=== PATIENT | male | born 1995 | race Caucasian/White ===

== ENCOUNTER 2023-08-19 19:14 | Inpatient (IN) | payer MEDICAID, SELFPAY ==
[2023-08-19 19:18] VITALS: BMI 26.6
[2023-08-19 19:27] VITALS: BP 145/92; PULSE 99; RESP 16; TEMP 36.8; O2SAT 96
[2023-08-19 19:52] LABS: Basophils # 0.1 10^3/uL (0.0-0.1); Basophils % 0.4 %; Eosinophils # 0.1 10^3/uL (0.0-0.8); Eosinophils % 0.4 %; Hematocrit 46.5 % (37-53); Lymphocytes # 4.3 10^3/uL (0.8-4.8); Lymphocytes % 30.4 %; Mean Corpuscular HGB Conc 35.1 g/dL (30-55); Mean Corpuscular Hemoglobin 30.9 pg (27-33); Mean Corpuscular Volume 88.1 fl (82-101); Mean Platelet Volume 8.6 fL (7.4-10.4); Monocytes % 6.8 %; Neutrophils # 8.65 10^3/uL (1.8-7.7); Neutrophils % 61.6 %; Nucleated Red Blood Cells % 0 %; Platelet Count 300 10^3/cmm (157-399); Red Blood Count 5.28 10^6/uL (3.85-5.65); Red Cell Distribution Width 12.9 % (12.1-15.1); White Blood Count 14.04 10^3/uL (3.29-11.43)
[2023-08-19 19:58] LABS: Add Urine Microscopic? NO; Charge for UA Resulting for Rev
[2023-08-19 20:19] LABS: Amphetamines Screen Urine Negative (Negative); Barbiturates Screen Urine Negative (Negative); Benzodiazepines Screen Urine Negative (Negative); Cocaine Screen Urine Negative (Negative); Opiate Screen Urine Negative (Negative); PCP Screen Urine Negative (Negative); THC Screen Urine Positive (Negative)
[2023-08-19 20:24] LABS: Alanine Aminotransferase 20 U/L (0-41); Albumin Level 4.4 g/dL (3.5-5.2); Alcohol Level 88 mg/dL (0-10); Alkaline Phosphatase 75 U/L (40-130); Anion Gap 17.7 (5-19); Aspartate Amino Transferase 18 U/L (0-40); Blood Urea Nitrogen 10 mg/dL (6-20); Calcium 8.4 mg/dL (8.5-10.5); Carbon Dioxide 24 mmol/L (22-29); Chloride 104 mmol/L (98-107); Globulin 2.7 g/dL (1.3-4.6); Glomerular Filtration Rate 99.8 mL/min (90-130); Glucose 103 mg/dL (65-115); Osmolality Calculated 293 mOsm/kg (285-295); Potassium 3.7 mmol/L (3.5-5.1); Sodium 142 mmol/L (136-145); Total Bilirubin 0.3 mg/dL (0.15-1.2); Total Protein 7.1 g/dL (6.6-8.7)
--- NOTE | 2023-08-19 20:35 | W.ED.PSYCHS ---
Documented by User: Sam Islas DO 08/19/23 20:40 HPI - Psych General: Chief Complaint: Psychiatric Symptoms Stated Complaint: SI/ETOH Time Seen by Provider: 08/19/23 19:23 History of Present Illness: Patient presents to the ER with worsening depression and insomnia. Patient said his life has been spiraling downhill specially over the last couple months. Patient says he has no will to live and drinks 1-1/2 to 2 pints of 100 proof alcohol daily just to drown his feelings and help him get through the day. Patient denies any overt suicidal or homicidal ideation but says he do not know if he can go through this anymore and just needs help. [facility] ED PFSH: Medical History Psychiatric care Physical Exam Const: COMMON NORMALS: no acute distress, average body habitus, patient oriented x3, no limitations, healthy appearing, alert and well nourished HENMT: COMMON NORMALS: normocephalic, hearing grossly normal bilaterally, external ears normal, Normal external nose present, moist oral mucous membranes and oropharynx normal HEAD & SCALP: normocephalic NOSE: Normal external nose present EXTERNAL EAR: Yes external ears normal Neck/C-Spine: COMMON NORMALS: full ROM, no lymphadenopathy, supple, no meningeal signs, no JVD and Thyroid normal THYROID: Thyroid normal Chest: COMMONS NORMALS: normal inspection of the chest and normal palpation of entire chest wall Resp: COMMON NORMALS: normal respiratory effort, No retractions, No use of accessory muscles and clear to auscultation bilaterally AUSCULTATION: clear to auscultation bilaterally Cardio: COMMON NORMALS: no JVD, regular rate, regular rhythm, S1 normal heart sound present, S2 normal heart sound present, No gallops present (Cardio), No clicks present (Cardio), No murmurs present (Cardio) and No rub (Cardio) RATE: regular rate RHYTHM: regular rhythm HEART SOUNDS: S1 normal heart sound present and S2 normal heart sound present GI: COMMON NORMALS: Normal to inspection, nondistended, normoactive bowel sounds present, Soft to palpation, non-tender, No hepatosplenomegaly present and no masses PALPATION: Yes Soft to palpation and Yes No hepatosplenomegaly present Neuro: COMMON NORMALS: patient oriented x3 SENSORIUM/ORIENTATION: Yes alert MENINGEAL SIGNS: Yes no meningeal signs Course Vital Signs: Vital signs: Vital Signs Temperature 98.1 F 08/20/23 12:51 Pulse Rate 60 08/20/23 12:51 Respiratory Rate 16 08/20/23 06:33 Blood Pressure 129/80 08/20/23 12:51 Pulse Oximetry 98 08/20/23 12:51 Oxygen Delivery Me thod Room Air 08/20/23 12:51 MDM - Psych Differential Diagnosis Likely depression; Unlikely acute psychosis, chronic schizophrenia, suicidal ideation, bipolar disorder, drug-induced psychotic disorder or acute anxiety Medical Records I reviewed the patient's medical records. Lab Data I reviewed the patient's lab results. 08/19/23 19:48 08/19/23 19:48 Laboratory Results WBC 14.04 10^3/uL (3.29-11.43) H 08/19/23 19:48 RBC 5.28 10^6/uL (3.85-5.65) 08/19/23 19:48 Hgb 16.30 g/dL (11.27-16.99) 08/19/23 19:48 Hct 46.5 % (37-53) 08/19/23 19:48 MCV 88.1 fl (82-101) 08/19/23 19:48 MCH 30.9 pg (27-33) 08/19/23 19:48 MCHC 35.1 g/dL (30-55) 08/19/23 19:48 RDW 12.9 % (12.1-15.1) 08/19/23 19:48 Plt Count 300 10^3/cmm (157-399) 08/19/23 19:48 MPV 8.6 fL (7.4-10.4) 08/19/23 19:48 Neut % (Auto) 61.6 % 08/19/23 19:48 Lymph % (Auto) 30.4 % 08/19/23 19:48 Victoria % (Auto) 6.8 % 08/19/23 19:48 Eos % (Auto) 0.4 % 08/19/23 19:48 Baso % (Auto) 0.4 % 08/19/23 19:48 Neut # (Auto) 8.65 10^3/uL (1.8-7.7) H 08/19/23 19:48 Lymph # (Auto) 4.3 10^3/uL (0.8-4.8) 08/19/23 19:48 Victoria # (Auto) 1.0 10^3/uL (0.2-0.9) H 08/19/23 19:48 Eos # (Auto) 0.1 10^3/uL (0.0-0.8) 08/19/23 19:48 Baso # (Auto) 0.1 10^3/uL (0.0-0.1) 08/19/23 19:48 Nucleated RBC % (auto) 0 % 08/19/23 19:48 Nucleated RBCs # 0.0 /100WBC 08/19/23 19:48 Sodium 142 mmol/L (136-145) 08/19/23 19:48 Potassium 3.7 mmol/L (3.5-5.1) 08/19/23 19:48 Chloride 104 mmol/L (98-107) 08/19/23 19:48 Carbon Dioxide 24 mmol/L (22-29) 08/19/23 19:48 Anion Gap 17.7 (5-19) 08/19/23 19:48 BUN 10 mg/dL (6-20) 08/19/23 19:48 Creatinine 0.9 mg/dL (0.7-1.2) 08/19/23 19:48 GFR Calculation 99.8 mL/min (90-130) 08/19/23 19:48 Glucose 103 mg/dL (65-115) 08/19/23 19:48 Calculated Osmolality 293 mOsm/kg (285-295) 08/19/23 19:48 Calcium 8.4 mg/dL (8.5-10.5) L 08/19/23 19:48 Total Bilirubin 0.3 mg/dL (0.15-1.2) 08/19/23 19:48 AST 18 U/L (0-40) 08/19/23 19:48 ALT 20 U/L (0-41) 08/19/23 19:48 Alkaline Phosphatase 75 U/L (40-130) 08/19/23 19:48 Total Protein 7.1 g/dL (6.6-8.7) 08/19/23 19:48 Albumin 4.4 g/dL (3.5-5.2) 08/19/23 19:48 Globulin 2.7 g/dL (1.3-4.6) 08/19/23 19:48 Urine Color Yellow (Yellow) 08/19/23 19:14 Urine Appearance Clear (CLEAR) 08/19/23 19:14 Urine pH 6 (5-7) 08/19/23 19:14 Ur Specific Smilax 1.010 (1.005-1.030) 08/19/23 19:14 Urine Protein Neg (Negative) 08/19/23 19:14 Urine Glucose (UA) Norm (Normal) 08/19/23 19:14 Urine Ketones Negative (Negative) 08/19/23 19:14 Urine Blood Neg (Negative) 08/19/23 19:14 Urine Nitrate Negative (Negative) 08/19/23 19:14 Urine Bilirubin Neg (Negative) 08/19/23 19:14 Urine Urobilinogen Norm mg/dL (Negative) 08/19/23 19:14 Ur Leukocyte Esterase Negative (Negative) 08/19/23 19:14 Salicylates < 0.3 mg/dL (3-10) L 08/19/23 19:48 Urine Opiates Screen Negative ng/mL (Negative) 08/19/23 19:14 Acetaminophen < 5.0 ug/mL (10-30) L 08/19/23 19:48 Ur Barbiturates Screen Negative ng/mL (Negative) 08/19/23 19:14 Ur Phencyclidine Scrn Negative ng/mL (Negative) 08/19/23 19:14 Ur Amphetamines Screen Negative ng/mL (Negative) 08/19/23 19:14 U Benzodiazepines Scrn Negative ng/mL (Negative) 08/19/23 19:14 Urine Cocaine Screen Negative ng/mL (Negative) 08/19/23 19:14 U Marijuana (THC) Screen Positive ng/mL (Negative) H 08/19/23 19:14 Ethyl Alcohol 88 mg/dL (0-10) H 08/19/23 19:48 No radiology studies performed this visit Discharge Plan Discharge Admit Provider: Magnus Martinez Condition: Stable Coding Level of Care Code ED Advertising Specialist for Chg Fwd Documented by User: Raphael Cummings 08/20/23 13:06 HPI - Psych General: Chief Complaint: Psychiatric Symptoms Stated Complaint: SI/ETOH Time Seen by Provider: 08/19/23 19:23 PFSH ED PFSH: Medical History Psychiatric care Course Vital Signs: Vital signs: Vital Signs Temperature 98.1 F 08/20/23 12:51 Pulse Rate 60 08/20/23 12:51 Respiratory Rate 16 08/20/23 06:33 Blood Pressure 129/80 08/20/23 12:51 Pulse Oximetry 98 08/20/23 12:51 Oxygen Delivery Me thod Room Air 08/20/23 12:51 MDM - Psych Medical Decision Making h Medical Records This patient was signed out to myself Dr. Cummings by Dr. Islas at 0600 currently waiting on open bed to admit this patient as Dr. Martinez was already consulted and has agreed to accept the patient, will continue to follow. Notified by nursing staff at around noon we do have bed availability contacted Dr. Martinez back no additional concerns or were noted patient was provided a nicotine patch patient will be be admitted to the [facility] for further assessment and management Lab Data 08/19/23 19:48 08/19/23 19:48 Laboratory Results WBC 14.04 10^3/uL (3.29-11.43) H 08/19/23 19:48 RBC 5.28 10^6/uL (3.85-5.65) 08/19/23 19:48 Hgb 16.30 g/dL (11.27-16.99) 08/19/23 19:48 Hct 46.5 % (37-53) 08/19/23 19:48 MCV 88.1 fl (82-101) 08/19/23 19:48 MCH 30.9 pg (27-33) 08/19/23 19:48 MCHC 35.1 g/dL (30-55) 08/19/23 19:48 RDW 12.9 % (12.1-15.1) 08/19/23 19:48 Plt Count 300 10^3/cmm (157-399) 08/19/23 19:48 MPV 8.6 fL (7.4-10.4) 08/19/23 19:48 Neut % (Auto) 61.6 % 08/19/23 19:48 Lymph % (Auto) 30.4 % 08/19/23 19:48 Victoria % (Auto) 6.8 % 08/19/23 19:48 Eos % (Auto) 0.4 % 08/19/23 19:48 Baso % (Auto) 0.4 % 08/19/23 19:48 Neut # (Auto) 8.65 10^3/uL (1.8-7.7) H 08/19/23 19:48 Lymph # (Auto) 4.3 10^3/uL (0.8-4.8) 08/19/23 19:48 Victoria # (Auto) 1.0 10^3/uL (0.2-0.9) H 08/19/23 19:48 Eos # (Auto) 0.1 10^3/uL (0.0-0.8) 08/19/23 19:48 Baso # (Auto) 0.1 10^3/uL (0.0-0.1) 08/19/23 19:48 Nucleated RBC % (auto) 0 % 08/19/23 19:48 Nucleated RBCs # 0.0 /100WBC 08/19/23 19:48 Sodium 142 mmol/L (136-145) 08/19/23 19:48 Potassium 3.7 mmol/L (3.5-5.1) 08/19/23 19:48 Chloride 104 mmol/L (98-107) 08/19/23 19:48 Carbon Dioxide 24 mmol/L (22-29) 08/19/23 19:48 Anion Gap 17.7 (5-19) 08/19/23 19:48 BUN 10 mg/dL (6-20) 08/19/23 19:48 Creatinine 0.9 mg/dL (0.7-1.2) 08/19/23 19:48 GFR Calculation 99.8 mL/min (90-130) 08/19/23 19:48 Glucose 103 mg/dL (65-115) 08/19/23 19:48 Calculated Osmolality 293 mOsm/kg (285-295) 08/19/23 19:48 Calcium 8.4 mg/dL (8.5-10.5) L 08/19/23 19:48 Total Bilirubin 0.3 mg/dL (0.15-1.2) 08/19/23 19:48 AST 18 U/L (0-40) 08/19/23 19:48 ALT 20 U/L (0-41) 08/19/23 19:48 Alkaline Phosphatase 75 U/L (40-130) 08/19/23 19:48 Total Protein 7.1 g/dL (6.6-8.7) 08/19/23 19:48 Albumin 4.4 g/dL (3.5-5.2) 08/19/23 19:48 Globulin 2.7 g/dL (1.3-4.6) 08/19/23 19:48 Urine Color Yellow (Yellow) 08/19/23 19:14 Urine Appearance Clear (CLEAR) 08/19/23 19:14 Urine pH 6 (5-7) 08/19/23 19:14 Ur Specific Smilax 1.010 (1.005-1.030) 08/19/23 19:14 Urine Protein Neg (Negative) 08/19/23 19:14 Urine Glucose (UA) Norm (Normal) 08/19/23 19:14 Urine Ketones Negative (Negative) 08/19/23 19:14 Urine Blood Neg (Negative) 08/19/23 19:14 Urine Nitrate Negative (Negative) 08/19/23 19:14 Urine Bilirubin Neg (Negative) 08/19/23 19:14 Urine Urobilinogen Norm mg/dL (Negative) 08/19/23 19:14 Ur Leukocyte Esterase Negative (Negative) 08/19/23 19:14 Salicylates < 0.3 mg/dL (3-10) L 08/19/23 19:48 Urine Opiates Screen Negative ng/mL (Negative) 08/19/23 19:14 Acetaminophen < 5.0 ug/mL (10-30) L 08/19/23 19:48 Ur Barbiturates Screen Negative ng/mL (Negative) 08/19/23 19:14 Ur Phencyclidine Scrn Negative ng/mL (Negative) 08/19/23 19:14 Ur Amphetamines Screen Negative ng/mL (Negative) 08/19/23 19:14 U Benzodiazepines Scrn Negative ng/mL (Negative) 08/19/23 19:14 Urine Cocaine Screen Negative ng/mL (Negative) 08/19/23 19:14 U Marijuana (THC) Screen Positive ng/mL (Negative) H 08/19/23 19:14 Ethyl Alcohol 88 mg/dL (0-10) H 08/19/23 19:48 Discharge Plan Discharge Admit Provider: Magnus Martinez Condition: Stable Coding Level of Care Code ED Advertising Specialist for Jerardo Blackman
[2023-08-19 20:36] LABS: Acetaminophen < 5.0 ug/mL (10-30); Salicylate < 0.3 mg/dL (3-10)
[2023-08-19 20:44] LABS: Bilirubin Urine Neg (Negative); Blood Urine Neg (Negative); Glucose Urine UA Norm (Normal); Ketones Urine Negative (Negative); Leukocyte Esterase Urine Negative (Negative); Nitrate Urine Negative (Negative); Protein Urine Neg (Negative); Urine Appearance Clear (CLEAR); Urine Color Yellow (Yellow); Urobilinogen Urine Norm (Negative); pH Urine 6 (5-7)
[2023-08-20 06:33] VITALS: BP 106/71; PULSE 69; RESP 16; O2SAT 99
[2023-08-20] MEDS: nicotine 21 mg Patch 1 PATCH TRANSDERMA (07:19)
[2023-08-20 12:51] VITALS: BP 129/80; PULSE 60; TEMP 36.7; O2SAT 98
[2023-08-20 14:00] VITALS: BP 151/95; PULSE 72; RESP 16; TEMP 36.8; O2SAT 96
[2023-08-20] MEDS: nicotine 2 mg Gum BUCCAL ×2 (15:18→18:21)
[2023-08-20 20:08] VITALS: BP 158/97; PULSE 60; RESP 18; TEMP 36.5; O2SAT 99
[2023-08-21 06:00] VITALS: BP 121/70; PULSE 52; RESP 16; TEMP 36.4; O2SAT 99; BMI 27.8
[2023-08-21] MEDS: multivitamin therapeutic Tablet 1 TAB PO (07:59)
[2023-08-21] MEDS: thiamine 100 mg Tablet PO (07:59)
[2023-08-21] MEDS: nicotine 2 mg Gum BUCCAL (08:00)
[2023-08-21] MEDS: folic acid 1 mg Tablet PO (08:00)
--- NOTE | 2023-08-21 08:06 | PC.NURSE ---
During morning shift assessment, patient denied all. Patient calm and cooperative denies any needs at this time.
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
[2023-08-21 14:00] VITALS: BP 141/88; PULSE 63; RESP 16; TEMP 36.6; O2SAT 96
[2023-08-21] MEDS: fluoxetine 20 mg Capsule PO (14:54)
[2023-08-21 19:45] VITALS: BP 134/79; PULSE 52; RESP 18; TEMP 36.3; O2SAT 98
[2023-08-22 06:00] VITALS: BP 136/78; PULSE 50; RESP 16; TEMP 36.6; O2SAT 99
--- NOTE | 2023-08-22 08:12 | PC.NURSE ---
During morning shift assessment, patient reports anxiety related to going to his first group today. Patient denies SI, HI, AVH, and depression.
[2023-08-22] MEDS: folic acid 1 mg Tablet PO (08:28)
[2023-08-22] MEDS: multivitamin therapeutic Tablet 1 TAB PO (08:28)
[2023-08-22] MEDS: thiamine 100 mg Tablet PO (08:28)
[2023-08-22] MEDS: fluoxetine 20 mg Capsule PO (08:28)
--- NOTE | 2023-08-22 09:15 | P.NPUPN_ITS ---
Subjective NPU 2 Subjective: Patient presented today reporting that he is feeling better with the addition of Prozac. He reports that he is feeling well from the standpoint of his alcohol withdrawal. He reports that the social work team was helpful and reached out to his employer and so that issues should be a nonissue. He reported wondering about the possibility of discharge and is wondering if that could happen by tomorrow. We discussed evaluating him and seeing where things are tomorrow and working with the social work team for possible follow-up appointments. He denies any side effects to the Prozac. Mental Status Exam 2 MSE Comments: This is an overweight white male in hospital scrubs with limited grooming and adequate eye contact. No abnormal movements except for mild psychomotor retardation. Cooperative with exam in mild to moderate distress. Speech was increased in rate with normal volume. His mood was described as feeling better. His affect is congruent and less subdued. His thought process was linear. His thought content, he denied suicidal or homicidal ideation, there were no delusions reported or noted, he denied auditory or visual hallucinations. His attention and concentration appeared appropriate and his recent remote memory appeared fair but neither were tested formally. He is alert and oriented x 3. Insight, judgment and impulse control are limited. Vitals/I&O/Wt Last Vital Signs Temp 97.8 F 08/22/23 06:00 Pulse 50 L 08/22/23 06:00 Resp 16 08/22/23 06:00 BP 136/78 08/22/23 06:00 Pulse Ox 99 08/22/23 06:00 O2 Del Method Room Air 08/22/23 06:00 Weight last 48 hrs Weight 73.663 kg Data NPU 08/19/23 19:48 08/19/23 19:48 A&P Assessment and plan (1) History of bipolar disorder: (2) Depression: (3) Suicidal ideation: (4) History of substance abuse: Plan This is a 27-year-old white male who presents with severe depression, anxiety, and substance abuse issues. History of trauma and unstable family and social environment. Previous suicide attempt and ongoing suicidal ideation. No current psychiatric medication. 1. Started Prozac 20mg daily. 2. encourage individual group and milieu therapy. 3. continue 15-minute med checks for safety. 4. recommend sober living treatment at the highest level of care to which the patient is willing to commit. 5. Initiate CIWA protocol as indicated with thiamine supplementation. Patient not scoring on CIWA discussed the possibility of discharge tomorrow. Involuntary Hold Information 2 96 Hour Hold: 96 Hour Involuntary Admission: No Attestations NPU 2 Medical Necessity Statement*: Inpatient hospitalization is medically necessary and the clinically appropriate intervention at this time. We will monitor/initiate medications and make changes as indicated. Likely length of stay 2-4 days. Coding Level of Care Code Acute Code for g Fwd Diagnoses History of bipolar disorder Z86.59 Depression F32.A Suicidal ideation R45.851 History of substance abuse F19.11
[2023-08-22 13:25] VITALS: BP 153/92; PULSE 56; RESP 14; TEMP 36.6; O2SAT 97
[2023-08-22 20:50] VITALS: BP 144/77; PULSE 52; RESP 16; TEMP 36.7; O2SAT 94
[2023-08-22] MEDS: trazodone 50 mg Tablet PO ×2 (21:56→23:08)
[2023-08-22] MEDS: calcium carbonate 500 mg Chew Tablet 1000 MG PO (22:37)
[2023-08-23 06:00] VITALS: BP 133/82; PULSE 50; RESP 16; TEMP 36.4; O2SAT 98
[2023-08-23] MEDS: folic acid 1 mg Tablet PO (07:50)
[2023-08-23] MEDS: ibuprofen 600 mg Tablet PO (07:50)
[2023-08-23] MEDS: fluoxetine 20 mg Capsule PO (07:50)
[2023-08-23] MEDS: multivitamin therapeutic Tablet 1 TAB PO (07:51)
[2023-08-23] MEDS: thiamine 100 mg Tablet PO (07:51)
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
[2023-08-23 13:40] VITALS: BP 133/82; PULSE 50; RESP 16; TEMP 36.4; O2SAT 98
[2023-08-23 14:00] VITALS: BP 153/79; PULSE 56; RESP 16; TEMP 36.3; O2SAT 95
== END 2023-08-23 15:05 | disposition home or self-care (01) | DRG 885 ==
LOC: ER 08-20 10:53 → NP 08-20 12:36
PROVIDERS: Emergency Medicine; Admitting Provider Psychiatry & Neurology Psychiatry; Emergency Provider Emergency Medicine; Visit Provider Psychiatry & Neurology Psychiatry
DX: F32.2 Major depressive disorder, single episode, severe without psychotic features (principal); R45.851 Suicidal ideations; G47.00 Insomnia, unspecified; F15.11 Other stimulant abuse, in remission; F14.11 Cocaine abuse, in remission; F10.20 Alcohol dependence, uncomplicated; Y90.4 Blood alcohol level of 80-99 mg/100 ml; F12.90 Cannabis use, unspecified, uncomplicated; F17.200 Nicotine dependence, unspecified, uncomplicated; Z91.51 Personal history of suicidal behavior; Z63.4 Disappearance and death of family member
CPT/HCPCS: 36415; 80053; 80306; 80307; 81003; 85025; 97150; 97165; 99285